=== PATIENT | male | born 1965 | race Two or more races ===

== ENCOUNTER 2024-07-20 14:31 | Inpatient (IN) | payer OTHER, MEDICAID ==
[~2024-07-20] VITALS: Ht 167.6 cm; Wt 112.1 kg
[~2024-07-20 14:31] MED LIST: ATOR20TA PO; FURO20TA3 PO; GLIP10TA9 PO; NAP500T PO; POTA8TAB38 PO; SEMA2INJ3 SC; TERB250T86 PO
--- NOTE | 2024-07-20 14:52 | ECG ---
[facility] Test Date: 2024-07-20 Test Time: 14:50:53 Pat Name: DANN GAMEZ Department: ER Room: 0212T Gender: M Still Tender: GIN : 1965 Requested By: KAMINI RENTERIA Order Number: [id number] Reading MD: Uday Vargas Measurements Intervals Campbell Rate: 99 P: 73 ND: 199 QRS: -53 QRSD: 130 T: 114 QT: 368 QTc: 473 Interpretive Statements Sinus rhythm Left bundle branch block Electronically Signed On 07-25-2024 16:08:29 PST by Uday Vargas Please click the below link to view image of tracing.
--- NOTE | 2024-07-20 14:52 | ED.PDOC ---
SOB-HPI HPI Comments A 59 year old female presents to the ED with a chief complaint of shortness of breath onset 3 days. Patient states he noticed shortness of breath is worse at night when he is laying down or when he tries to walk as well as fatigue and cough. He has a past medical history of DM and denies fever, chills, chest pain, nausea, vomiting, diarrhea, constipation. No other symptoms or modifying factors present at this time. Time Seen by MD: 14:43 Reviewed notes: Medications, Allergies Information Source: Patient, Spouse Mode of Arrival: Ambulatory Severity: Moderate Timing: Days Duration: Since onset History of: None Prehospital treatment: None Modifying Factors: Laying flat Associated Signs and Symptoms: Cough Past Medical History PAST MEDICAL HISTORY: DM Surgical History: Denies all surgeries Family History Family History: Unknown Social History Smoker: Non-Smoker Alcohol: Denies ETOH Use Drugs: Denies Drug Use Lives In: Home Constitutional: reports: fatigue; denies: chills, diaphoresis, fever, malaise, sweats, weakness, others EENTM: denies: blurred vision, double vision, ear bleeding, ear discharge, ear drainage, ear pain, ear ringing, eye pain, eye redness, hearing loss, mouth pain, mouth swelling, nasal discharge, nose bleeding, nose congestion, nose pain, photophobia, tearing, throat pain, throat swelling, voice changes, others Respiratory: reports: cough, shortness of breath; denies: hemoptysis, orthopnea, SOB at rest, SOB with excertion, stridor, wheezing, others Cardiovascular: denies: chest pain, dizzy spells, diaphoresis, Dyspnea on exertion, edema, irregular heart beat, left arm pain, lightheadedness, palpitations, PND, syncope, others Gastrointestinal: denies: abdomen distended, abdominal pain, blood streaked bowels, constipated, diarrhea, dysphagia, difficulty swallowing, hematemesis, melena, nausea, poor appetite, poor fluid intake, rectal bleeding, rectal pain, vomiting, others Genitourinary: denies: burning, dysuria, flank pain, frequency, hematuria, incontinence, penile discharge, penile sore, pain, testicle pain, testicle swelling, urgency, others Neurological: denies: dizziness, fainting, headache, left sided numbness, left sided weakness, numbness, paresthesia, pre-existing deficit, right sided numbness, right sided weakness, seizure, speech problems, tingling, tremors, weakness, others Musculoskeletal: denies: back pain, gout, joint pain, joint swelling, muscle pain, muscle stiffness, neck pain, others Integumetry: denies: bruises, change in color, change in hair/nails, dryness, laceration, lesions, lumps, rash, wounds, others Allergic/Immunocompromised: denies: Difficulty Healing, Frequent Infections, Hives, Itching, others Hematologic/Lymphatic: denies: anemia, blood clots, easy bleeding, easy bruising, swollen glands, others Endocrine: denies: excessive hunger, excessive sweating, excessive thirst, excessive urination, flushing, intolerance to cold, intolerance to heat, unexplained weight gain, unexplained weight loss, others Psychiatric: denies: anxiety, bipolar disorder, depression, hopeless, panic disorder, schizophrenia, sleepless, suicidal, others All Other Systems: Reviewed and Negative Physical Exam General Appearance: No Apparent Distress, Normal HEENT: Normal ENT Inspection, Pharynx Normal, TMs Normal Neck: Full Range of Motion, Non-Tender, Normal, Normal Inspection Respiratory: Chest Non-Tender, Lungs Clear, No Accessory Muscle Use, No Respiratory Distress, Normal Breath Sounds Cardiovascular: No Edema, No JVD, No Murmur, No Gallop, Normal Peripheral Pulses, Regular Rate/Rhythm Breast Exam: Deferred Gastrointestinal: No Organomegaly, Non Tender, No Pulsatile Mass, Normal Bowel Sounds, Soft Genitalia: Deferred Pelvic: Deferred Rectal: Deferred Extremities: No calf tenderness, Normal capillary refill, Normal inspection, Normal range of motion, Non-tender, No pedal edema Musculoskeletal : Apperance: Normal Neurologic: Alert, 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 Was a procedure done?: No Differential Dx Differential Diagnosis: Cardiogenic Shock, CHF, COPD, Myocardial infarction, Pneumonia, Pulmonary Embolism, URI X-Ray, Labs, Meds, VS Vital Signs Date Time Temp Pulse Resp B/P (MAP) Pulse Ox O2 Delivery O2 Flow Rate FiO2 07/20/24 16:13 98 18 95 Room Air* 0 21 07/20/24 16:12 98.1 98 18 112/73 (86) 95 98.1 07/20/24 14:50 99 07/20/24 14:49 98.2 99 16 113/76 (88) 93 Lab Test 07/20/24 16:24 07/20/24 15:18 Range/Units Troponin I High Sensitivity Pending 2962 *H </=54 ng/L White Blood Count 7.6 4.4-10.8 10^3/uL Red Blood Count 4.61 4.5-5.90 10^6/uL Hemoglobin 15.0 13.5-17.5 g/dL Hematocrit 45.0 41.0-53.0 % Mean Corpuscular Volume 97.7 80.0-100.0 fL Mean Corpuscular Hemoglobin 32.4 H 28.0-32.0 pg Mean Corpuscular Hemoglobin Concent 33.2 32.0-36.0 g/dL Red Cell Distribution Width 15.1 H 11.8-14.3 % Platelet Count 179 140-450 10^3/uL Mean Platelet Volume 8.8 6.9-10.8 fL Neutrophils (%) (Auto) 73.3 37.0-80.0 % Lymphocytes (%) (Auto) 15.6 10.0-50.0 % Monocytes (%) (Auto) 7.6 0.0-12.0 % Eosinophils (%) (Auto) 3.0 0.0-7.0 % Basophils (%) (Auto) 0.5 0.0-2.0 % Neutrophils # (Auto) 5.5 1.6-8.6 10 ^3/uL Lymphocytes # (Auto) 1.2 0.4-5.4 10 ^3/uL Monocytes # (Auto) 0.6 0-1.3 10 ^3/uL Eosinophils # (Auto) 0.2 0-0.8 10 ^3/uL Basophils # (Auto) 0 0-0.2 10 ^3/uL Nucleated Red Blood Cells 0.0 % Sodium Level 139 136-145 mmol/L Potassium Level 3.7 3.5-5.1 mmol/L Chloride Level 104 98-107 mmol/L Carbon Dioxide Level 26 20-31 mmol/L Anion Gap 9 5-15 Blood Urea Nitrogen 18 9-23 mg/dL Creatinine 1.19 0.700-1.30 mg/dL Glomerular Filtration Rate Calc 70 >90 mL/min BUN/Creatinine Ratio 15.1 10.0-20.0 Serum Glucose 231 H 74-106 mg/dL Calcium Level 9.8 8.7-10.4 mg/dL B-Type Natriuretic Peptide 502.78 0-100 pg/mL [facility] [address] [place] [id number] Ph: [phone] DIAGNOSTIC IMAGING Diagnostic Imaging Report : [id number] Signed PATIENT: DANN BLANDACCT: [id number] UNIT: [id number] : 1965 LOC: ER ROOM / BED: / AGE / SEX: 59 / M ADM STATUS: REG ER SERVICE 46 ORDERING PHYSICIAN: KAMINI RO MD PROCEDURE(s): CXR2 - CHEST TWO VIEWS ROUTINE REASON: sob ORDER NUMBER(s): [id number], ACCESSION NUMBER(s): [id number] EXAM: XY CHEST TWO VIEWS ROUTINE CLINICAL HISTORY: sob COMPARISON: None TECHNIQUE: Frontal and lateral view of the chest was obtained FINDINGS: Lines and Tubes: None Lungs: There is opacity in the left lung base which may represent atelectasis versus airspace disease. Pleura: No effusion. No pneumothorax. Cardiomediastinal contours: Mild cardiomegaly. Bones: No acute osseous abnormality. IMPRESSION: 1. Left lung base opacity may represent atelectasis versus airspace disease. HS:Y ATED BY: KEV FRANCO MD DICTATED DATE/TIME: 07/20/241515 SIGNED BY: KEV FRANCO MD SIGNED DATE/TIME: 07/20/241515 CC: Time of 1ST Reevaluation: 15:13 Reevaluation 1ST: Unchanged Patient Education/Counseling: Diagnosis, Treatment, Prognosis Family Education/Counseling: Diagnosis, Treatment, Prognosis Additional Information HI DATA VOL/COMPLEXITY:>2 External Notes- Ordered Test- XY, LAB, EKG, Reviewed Results: CBC, TROP, TROP, TROP, BNP, COVID, Influenza A/B Independent Hx- spouse Interpreted Results- XY/EKG Discuss Tx/Results- medical personnel, spouse, patient Departure 1 Departure Time of Disposition: 16:54 (Patient presented with acute shortness of breath concerning for aCOPD Exacerbation, Pneumonia, ACS, CHF, Pneumothorax. Less likely PE, Dissection. Data: 1. I ordered and reviewed the result of at least 3 labs including a CBC, BMP, and Troponin. 2. I independently interpreted the following tests: Chest X-ray shows benign chest .Risk:This patient has a high risk of morbidity due to further diagnostic testing or treatment and may suffer from respiratory or cardiac etiology . Workup reveals a NSTEMI with new LBBB and patient should be admitted for further workup. and possible expert consultation.) Impression: Primary Impression: NSTEMI (non-ST elevated myocardial infarction) Additional Impression: Dyspnea Qualified Codes: R06.02 - Shortness of breath Disposition: ADMITTED INPATIENT Admit to: Tele Condition: Guarded Critical Care Note Critical Care Time?: Yes Critical care comment: Worsening shortness of breath Authorized and Performed by: Kamini Ro MD Total critical care time: Approximately 38 minutes Due to a high probability of clinically significant, life threatening deterioration, the patient required my highest level of preparedness to intervene emergently and I personally spent this critical care time directly and personally managing the patient. This critical care time included obtaining a history; examining the patient; pulse oximetry; ordering and review of studies; arranging urgent treatment with development of a management plan; evaluation of patient's response to treatment; frequent reassessment; and, discussions with other providers. This critical care time was performed to assess and manage the high probability of imminent, life-threatening deterioration that could result in multi-organ failure. It was exclusive of separately billable procedures and treating other patients and teaching time. Please see my other sections and the rest of the note for further information on patient assessment and treatment. Stability Stability form required: No Heart Score Heart Score: Heart Score Response (Comments) Value History Slightly Suspicious 0 EKG Repolarization Disturb 1 Age 45-64 1 Risk Factors 1 or 2 risk factors 1 Troponin >3 x's Normal limit 2 Total 5 I personally scribed for KAMINI RO MD ([email or web address]) on 07/20/24 at 14:52. Electronically submitted by Sun Parry ([email or web address]). I personally scribed for KAMINI RO MD ([email or web address]) on 07/20/24 at 14:53. Electronically submitted by Sun Parry ([email or web address]). I personally scribed for KAMINI RO MD ([email or web address]) on 07/20/24 at 15:40. Electronically submitted by Sun Parry ([email or web address]). KAMINI RO MD Jul 20, 2024 14:52
--- NOTE | 2024-07-20 15:18 | DVH ---
EXAM: XY CHEST TWO VIEWS ROUTINE CLINICAL HISTORY: sob COMPARISON: None TECHNIQUE: Frontal and lateral view of the chest was obtained FINDINGS: Lines and Tubes: None Lungs: There is opacity in the left lung base which may represent atelectasis versus airspace disease . Pleura: No effusion. No pneumothorax. Cardiomediastinal contours: Mild cardiomegaly. Bones: No acute osseous abnormality. IMPRESSION: 1. Left lung base opacity may represent atelectasis versus airspace disease. HS:Y
[2024-07-20 15:46] LABS: Chloride 104 mmol/L (98-107); Potassium 3.7 mmol/L (3.5-5.1); Sodium 139 mmol/L (136-145)
[2024-07-20 15:47] LABS: Anion Gap 9 (5-15); Carbon Dioxide 26 mmol/L (20-31)
[2024-07-20 15:48] LABS: Basophils # (auto) 0 10 ^3/uL (0-0.2); Basophils % (auto) 0.5 % (0.0-2.0); Calcium 9.8 mg/dL (8.7-10.4); Eosinophils # (auto) 0.2 10 ^3/uL (0-0.8); Lymphocytes # (auto) 1.2 10 ^3/uL (0.4-5.4); Lymphocytes % (auto) 15.6 % (10.0-50.0); Mean Corpuscular Hemoglobin 32.4 pg (28.0-32.0); Mean Corpuscular Hgb Conc. 33.2 g/dL (32.0-36.0); Mean Corpuscular Volume 97.7 fL (80.0-100.0); Monocytes # (auto) 0.6 10 ^3/uL (0-1.3); Monocytes % (auto) 7.6 % (0.0-12.0); Neutrophils # (auto) 5.5 10 ^3/uL (1.6-8.6); Neutrophils % (auto) 73.3 % (37.0-80.0); Platelet Count (auto) 179 10^3/uL (140-450); Red Blood Cells 4.61 10^6/uL (4.5-5.90); Red Cell Distribution Width 15.1 % (11.8-14.3); White Blood Cell 7.6 10^3/uL (4.4-10.8)
[2024-07-20 15:52] LABS: BUN/Creatinine Ratio 15.1 (10.0-20.0); Blood Urea Nitrogen 18 mg/dL (9-23)
[2024-07-20 15:54] LABS: Glucose 231 mg/dL (74-106)
[2024-07-20 16:13] VITALS: PULSE 98; RESP 18; O2SAT 95
[2024-07-20] MEDS: ASPirin 81 mg TAB PO ONE (17:06)
[2024-07-20 17:31] LABS: INR 1.17 (0.9-1.15); Partial Thromboplastin Time 28.2 SEC (24.5-34.5); Prothrombin Time 12.3 sec (9.3-11.8)
[2024-07-20] MEDS: HEPARIN DRIP/D5W 100UNITS/ML 250 ML IV SCH (17:58)
[2024-07-20] MEDS: HEPARIN SODIUM (PORCINE) 5000 UNITS/ML 1ML VIAL IV ONE (17:59)
[2024-07-20 18:37] LABS: Basophils # (auto) 0 10 ^3/uL (0-0.2); Basophils % (auto) 0.3 % (0.0-2.0); Eosinophils # (auto) 0.3 10 ^3/uL (0-0.8); Eosinophils % (auto) 3.2 % (0.0-7.0); Hematocrit 44.9 % (41.0-53.0); Hemoglobin 15.2 g/dL (13.5-17.5); Lymphocytes # (auto) 1.8 10 ^3/uL (0.4-5.4); Lymphocytes % (auto) 19.8 % (10.0-50.0); Mean Corpuscular Hgb Conc. 33.8 g/dL (32.0-36.0); Mean Corpuscular Volume 97.8 fL (80.0-100.0); Monocytes % (auto) 10.9 % (0.0-12.0); Neutrophils % (auto) 65.8 % (37.0-80.0); Nucleated Red Blood Cells % 0.1 %; Platelet Count (auto) 183 10^3/uL (140-450); Red Blood Cells 4.59 10^6/uL (4.5-5.90); Red Cell Distribution Width 14.9 % (11.8-14.3); White Blood Cell 9.1 10^3/uL (4.4-10.8)
[2024-07-20] MEDS ORDERED: MORPHINE SULFATE INJ 2 MG/ml SYRG IV PRN ×2 (19:15)
[2024-07-20] MEDS ORDERED: ACETAMINOPHEN 325 MG TAB PO PRN (19:15)
[2024-07-20] MEDS ORDERED: NITROGLYCERIN 0.4 MG SL TAB SL PRN (19:15)
[2024-07-20] MEDS ORDERED: HYDROcodone-ACET 5/325MG TAB PO PRN (19:15)
--- NOTE | 2024-07-20 19:21 | DVHHP2 ---
History of Present Illness History of Present Illness A 59 year old male S medical history of diabetes, GERD, hypertension presents to the ED with a chief complaint of shortness of breath onset 3 days. Patient states he noticed shortness of breath is worse at night when he is laying down or when he tries to walk as well as fatigue and cough. He has some midsternal chest pain that is associated with the cough. He denies per orally of cough, fevers/chills, nausea vomiting, diarrhea. Denies any family history of heart disease.. He denies any sweating, diaphoresis. Denies smoking, alcohol, drugs. Review of Systems Review of Systems As per HPI Allergies: Coded Allergies: NO KNOWN ALLERGIES (Unverified , 07/20/24) Medications Current Medications Medications Dose Ordered Sig/Waldo Route Start Time Stop Time Status Last Admin Dose Admin Heparin Sodium/ Dextrose 250 ml @ 10 mls/hr Q24H IV 07/20/24 17:00 07/20/24 17:59 10 MLS/HR Acetaminophen/ Hydrocodone Bitart 1 tab Q4HP PRN PO 07/20/24 19:15 UNV Enoxaparin Sodium 40 mg DAILY SC 07/21/24 10:00 UNV Acetaminophen 650 mg Q6HP PRN PO 07/20/24 19:15 UNV Morphine Sulfate 2 mg Q4HPRN PRN IV 07/20/24 19:15 UNV Nitroglycerin 0.4 mg Q5MINP PRN SL 07/20/24 19:15 UNV Morphine Sulfate 2 mg Q30M PRN IV 07/20/24 19:15 UNV Exam Vital Signs Vital Signs Date Time Temp Pulse Resp B/P (MAP) Pulse Ox O2 Delivery O2 Flow Rate FiO2 07/20/24 18:51 98.1 101 18 145/80 (101) 97 98.1 07/20/24 16:13 Room Air* 0 21 Exam GEN: Healthy appearing, well-developed, mild distress HEENT: NC/AT; MMM. CV: RRR, no m/r/g. LUNGS: Rales up to upper lobes bilaterally ABD: Soft, NT/ND, NBS, no masses or organomegaly. EXT: skin Warm, well perfused. no rashes. Pitting edema +1 at upper shins bilaterally NEURO: Ambulating with no limitations. No focal deficits. Labs/Xrays Labs Test 07/20/24 18:10 07/20/24 15:18 Range/Units White Blood Count 9.1 4.4-10.8 10^3/uL Red Blood Count 4.59 4.5-5.90 10^6/uL Hemoglobin 15.2 13.5-17.5 g/dL Hematocrit 44.9 41.0-53.0 % Mean Corpuscular Volume 97.8 80.0-100.0 fL Mean Corpuscular Hemoglobin 33.0 H 28.0-32.0 pg Mean Corpuscular Hemoglobin Concent 33.8 32.0-36.0 g/dL Red Cell Distribution Width 14.9 H 11.8-14.3 % Platelet Count 183 140-450 10^3/uL Mean Platelet Volume 8.4 6.9-10.8 fL Neutrophils (%) (Auto) 65.8 37.0-80.0 % Lymphocytes (%) (Auto) 19.8 10.0-50.0 % Monocytes (%) (Auto) 10.9 0.0-12.0 % Eosinophils (%) (Auto) 3.2 0.0-7.0 % Basophils (%) (Auto) 0.3 0.0-2.0 % Neutrophils # (Auto) 6.0 1.6-8.6 10 ^3/uL Lymphocytes # (Auto) 1.8 0.4-5.4 10 ^3/uL Monocytes # (Auto) 1.0 0-1.3 10 ^3/uL Eosinophils # (Auto) 0.3 0-0.8 10 ^3/uL Basophils # (Auto) 0 0-0.2 10 ^3/uL Nucleated Red Blood Cells 0.1 % Troponin I High Sensitivity 3337 *H </=54 ng/L Prothrombin Time 12.3 H 9.3-11.8 sec Prothrombin Time INR 1.17 H 0.9-1.15 Activated Partial Thromboplast Time 28.2 24.5-34.5 SEC Sodium Level 139 136-145 mmol/L Potassium Level 3.7 3.5-5.1 mmol/L Chloride Level 104 98-107 mmol/L Carbon Dioxide Level 26 20-31 mmol/L Anion Gap 9 5-15 Blood Urea Nitrogen 18 9-23 mg/dL Creatinine 1.19 0.700-1.30 mg/dL Glomerular Filtration Rate Calc 70 >90 mL/min BUN/Creatinine Ratio 15.1 10.0-20.0 Serum Glucose 231 H 74-106 mg/dL Calcium Level 9.8 8.7-10.4 mg/dL B-Type Natriuretic Peptide 502.78 0-100 pg/mL Assessment/Plan Assessment/Plan #Acute coronary syndrome #Chest pain #NSTEMI #New left bundle branch block -patient is high risk (elderly male, the lifestyle, history of diabetes and hypertension,) -atypical presentation, shortness of breath being primary complaint -troponins severely elevated up to 1999 -EKG be concerning changes for possible new left bundle branch block. STEMI not found -started on ACS protocol with aspirin load and heparin drip -cardiology consulted, NPO midnight, likely LHC in a.m. -maintain telemetry, chest pain protocol -nitro SL for chest pain - activate laboratory specialist if urgent signs develop (low BP, arrythmia, STEMI on ekg, uncontrollable chest pain) - trend troponins #Shortness of breath #Pitting edema #Rales #CHF, new onset -patient presenting with dyspnea on exertion shortness of breath orthopnea -Exam with rales up to upper lobes and pitting edema -Patient is meeting [place] criteria. Pending echo -we will trial 1 time Lasix 40 IV push Consult cardiology #HTN- holding lisinopril as patient is likely to get LHC #Diabetes holding p.o. home meds (glipizide, metformin, Jardiance)-we will do a.c. HS Accu-Cheks with mild SSI Diet NPO midnight DVT prophylaxis patient on heparin drip per ACS protocol GI prophylaxis Protonix IV Med tele Plan discussed with: Patient, Spouse My Orders Orders - ALETHA CORCORAN MD Procedure Category Date Status Time Admit ADMIT 07/20/24 Transmitted 19:03 Code Status CODE 07/20/24 Transmitted 19:03 Hydrocodone-Acet PHA 07/20/24 Logged 5/325mg Tab ([place] 19:15 Enoxaparin Sodium PHA 07/21/24 Logged (Lovenox) 10:00 Complete Blood Count LAB 07/21/24 Verified 04:00 Comprehensive LAB 07/21/24 Verified Metabolic Panel 04:00 Acetaminophen Tablet PHA 07/20/24 Logged (Tylenol Tablet) 19:15 Bedrest With Bathroom [place] 11/29/24 In Process Privileg 19:03 Morphine Sulfate [facility] 07/20/24 Logged Injection 19:15 Nitroglycerin [facility] 07/20/24 Logged Sublingual (Ntrostat 19:15 Morphine Sulfate [facility] 07/20/24 Logged Injection 19:15 Notify Of Changes [facility] 07/20/24 In Process From Base 19:03 Cryptologist For [facility] 07/20/24 In Process 24 Hours 19:03 Emergency Dysrhythmia [facility] 07/20/24 In Process Protocol 19:03 Rhythm Strips Once [facility] 07/20/24 In Process Every Shift 19:03 Oxygen By Nasal RT 07/20/24 Transmitted Cannula 19:03 Npo After Midnight DIET 07/21/24 Transmitted Breakfast Cardiac DIET 07/21/24 Transmitted Diet-2gna,Lofat,Lochol Breakfast Date of Service: Jul 20, 2024 Billing Provider: ALETHA CORCORAN MD Common Visit Codes: [id number] INP/OBS CARE (HIGH) ALETHA CORCORAN MD Jul 20, 2024 19:20
[2024-07-20] MEDS ORDERED: hydrALAZINE HCL 20 MG/ML VL IV PRN (19:30)
[2024-07-20] MEDS ORDERED: DEXTROSE (50%) 50ML SYRG IV PRN (19:30)
[2024-07-20 20:01] LABS: COVID19 ANTIGEN SOFIA FIA NEGATIVE (NEGATIVE); Rapid Influenza A Negative (Negative); Rapid Influenza B Negative (Negative)
[2024-07-20] MEDS: FUROSEMIDE 40 MG/4 ML VIAL IV ONE (21:54)
[2024-07-20] MEDS: ACCU-CHEK COMFORT CURVE STRIP VI SCH (22:01)
[2024-07-20] MEDS: InsuLIN REG 1unit/0.01ml Soln (100units/ml) SC SCH (22:05)
[2024-07-20] MEDS: FAMOTIDINE 20 MG TAB PO ONE (22:36)
[2024-07-20 23:16] LABS: INR 1.22 (0.9-1.15); Prothrombin Time 12.7 sec (9.3-11.8)
[2024-07-21] VITALS (9 sets, daily range): BP systolic 95–122; BP diastolic 57–85; PULSE 84–95; RESP 18–20; TEMP 97.6–98; O2SAT 92–98
[2024-07-21] MEDS: HEPARIN SODIUM (PORCINE) 5000 UNITS/ML 1ML VIAL IV ONE ×4 (00:09→17:57)
[2024-07-21] MEDS ORDERED: LISI2.5T47 PO (02:17)
[2024-07-21] MEDS ORDERED: METF-370 PO (02:17)
[2024-07-21] MEDS ORDERED: LISI40TA16 PO (04:29)
[2024-07-21] MEDS ORDERED: METF-371 PO (04:29)
[2024-07-21 06:51] LABS: Basophils # (auto) 0 10 ^3/uL (0-0.2); Basophils % (auto) 0.4 % (0.0-2.0); Eosinophils # (auto) 0.2 10 ^3/uL (0-0.8); Eosinophils % (auto) 3.4 % (0.0-7.0); Hematocrit 40.2 % (41.0-53.0); Hemoglobin 13.5 g/dL (13.5-17.5); Lymphocytes # (auto) 1.7 10 ^3/uL (0.4-5.4); Lymphocytes % (auto) 26.3 % (10.0-50.0); Mean Corpuscular Hemoglobin 32.7 pg (28.0-32.0); Mean Corpuscular Hgb Conc. 33.7 g/dL (32.0-36.0); Mean Corpuscular Volume 97.2 fL (80.0-100.0); Monocytes # (auto) 0.7 10 ^3/uL (0-1.3); Monocytes % (auto) 10.3 % (0.0-12.0); Neutrophils # (auto) 3.8 10 ^3/uL (1.6-8.6); Neutrophils % (auto) 59.6 % (37.0-80.0); Nucleated Red Blood Cells % 0.1 %; Platelet Count (auto) 170 10^3/uL (140-450); Red Blood Cells 4.14 10^6/uL (4.5-5.90); Red Cell Distribution Width 14.6 % (11.8-14.3); White Blood Cell 6.4 10^3/uL (4.4-10.8)
[2024-07-21 07:08] LABS: Alanine Aminotransferase 21 U/L (7-40); Alkaline Phosphatase 79 U/L (46-116); Anion Gap 10 (5-15); Aspartate Aminotransferase 37 U/L (13-40); BUN/Creatinine Ratio 22.2 (10.0-20.0); Blood Urea Nitrogen 22 mg/dL (9-23); Carbon Dioxide 26 mmol/L (20-31); Chloride 105 mmol/L (98-107); INR 1.19 (0.9-1.15); Partial Thromboplastin Time 27.9 SEC (24.5-34.5); Potassium 3.9 mmol/L (3.5-5.1); Prothrombin Time 12.5 sec (9.3-11.8); Sodium 141 mmol/L (136-145)
[2024-07-21 07:09] LABS: Albumin 3.6 g/dL (3.2-4.8); Total Protein 6.1 g/dL (5.7-8.2)
[2024-07-21 07:10] LABS: Bilirubin, Total 1.3 mg/dL (0.2-1.0); Glucose 149 mg/dL (74-106)
[2024-07-21] MEDS ORDERED: HEPARIN DRIP/D5W 100UNITS/ML 250 ML IV SCH (08:15)
--- NOTE | 2024-07-21 09:09 | DVHINCON2 ---
Date Seen: Jul 21, 2024 Referring Physician MD Yari Reason for Consultation NSTEMI, new onset CHF History of Present Illness This is a 59-year-old Marshallese-speaking mostly male who presented to emergency room with a chief complaint of shortness of breath for three days. Patient complains of progressive shortness of breath associated with PND, MCNAMARA, orthopnea, lower extremity edema, and exertional chest pain/fatigue. Denies palpitations, diaphoresis, dizziness, or syncopal events. He underwent a 12 lead electrocardiogram revealing a sinus rhythm with an associated left bundle branch block. Serial troponins peaked in the 4000s ng/L. Denies any medical history for cardiovascular disease. Significant medical history includes hypertension, dyslipidemia, qmw-qhcqnmy-jzjfnbmxy diabetes mellitus, and morbid obesity. Past Medical History Past medical history reviewed. No other significant than mentioned above. Past Surgical History Denies any past surgical history. Family History: Patient reports no known family medical history. Family History Family history reviewed. Social History Denies the use of illicit drugs, alcohol, or tobacco use. Allergies: Coded Allergies: NO KNOWN ALLERGIES (Unverified , 07/20/24) Home Meds Reported Medications Lisinopril (Lisinopril) 40 Mg Tab, 1 TAB PO BID 07/21/24 Metformin Hydrochloride (Metformin Hcl) 850 Mg Tab, 1 TAB PO BID 07/21/24 Lisinopril (Lisinopril) 2.5 Mg Tab, 2.5 MG PO DAILY for 30 Days, MG 07/21/24 Glipizide (Glipizide) 10 Mg Tab, 10 MG PO for 30 Days, MG 07/21/24 Metformin Hydrochloride (Metformin Hcl) 500 Mg Tab, 500 MG PO DAILY for 30 Days, MG 07/21/24 Home Meds Home medications reviewed. Current Medications Current Medications Medications (Trade) Dose Ordered Sig/Waldo Route PRN Reason Start Time Stop Time Status Last Admin Heparin Sodium/ Dextrose 250 ml @ 10 mls/hr Q24H IV 07/20/24 17:00 07/21/24 08:11 DC 07/20/24 17:59 Acetaminophen/ Hydrocodone Bitart ([place] 5/325MG Tab) 1 tab Q4HP PRN PO MODERATE PAIN (4-6 PAIN SCALE) 07/20/24 19:15 Enoxaparin Sodium (Lovenox) 40 mg DAILY SC 07/21/24 10:00 07/20/24 21:53 DC Acetaminophen (Tylenol Tablet) 650 mg Q6HP PRN PO PAIN SCALE 1-3 OR TEMP>100.4 07/20/24 19:15 Morphine Sulfate 2 mg Q4HPRN PRN IV SEVERE PAIN (7-10 PAIN SCALE) 07/20/24 19:15 Nitroglycerin (Ntrostat Sublingual) 0.4 mg Q5MINP PRN SL FOR CHEST PAIN 07/20/24 19:15 Morphine Sulfate 2 mg Q30M PRN IV FOR CHEST PAIN 07/20/24 19:15 Diagnostic Test (Pha) (Accu-Chek Comfort Curve T) 1 strip ACHS 07/20/24 22:00 07/21/24 06:32 Insulin Human Regular (InsuLIN R) ACHS SC 07/20/24 22:00 07/21/24 06:31 Dextrose 50 ml UD PRN IV Blood Sugar LESS THAN 60 07/20/24 19:30 Hydralazine HCl (Apresoline Injection) 10 mg Q6HP PRN IV SBP>170 07/20/24 19:30 Heparin Sodium/ Dextrose 250 ml @ 13 mls/hr [id number] IV 07/21/24 08:15 07/21/24 08:56 DC Heparin Sodium/ Dextrose 250 ml @ 16 mls/hr [id number] IV 07/21/24 09:00 Review of Systems Constitutional: No symptom reported Ears, Nose, & Throat: No symptom reported Eyes: No symptom reported Neurological: No symptoms reported Pulmonary/Respiratory: SOB Cardiovascular: Exertional angina Gastrointestinal: No symptom reported Genitourinary: No symptom reported Musculoskeletal: No symptom reported Skin: No symptom reported Psychiatric: No symptom reported Endocrine: No symptom reported Hemotologic/Lymphatic: No symptom reported Vital Signs Vital Signs Date Time Temp Pulse Resp B/P (MAP) Pulse Ox O2 Delivery O2 Flow Rate FiO2 07/21/24 05:00 97.7 90 18 95/57 (70) 92 97.7 07/21/24 02:02 Nasal Cannula* 2 28 Physical Exam General Appearance: Cooperative. Morbidly obese. Mild respiratory distress Head Exam: Normal inspection Neck Exam: Normal inspection. Non-tender. Normal alignment Pulmonary/Respiratory: Chest non-tender. Crackles to bilateral breath sounds Cardiovascular/Chest: Regular rate and rhythm. S1, S2. Sinus rhythm with a associated LBBB. No murmurs. No JVD. Peripheral Pulses: 2+ Radial (R). 2+ Radial (L). 2+ Pedal (R). 2+ Pedal (L) Abdominal Exam: Normal bowel sounds. Soft. Nontender. No hepatospenomegaly. No masses Ankle Exam: Positive ankle edema, 1+ Lower extremities: Positive lower extremity pitting edema, 2+ Neuro/Mental Status: A&O x4. Coherent Thoughts/Psych: Normal thought pattern. Appropriate mood and affect. Good judgement and insight Appearance: Mild acute respiratory distress Skin Exam: Normal inspection. Normal color. Warm. Dry Labs/Diagnostic Data Labs Test 07/21/24 06:32 07/20/24 21:58 07/20/24 19:23 07/20/24 15:18 Range/Units White Blood Count 6.4 # 4.4-10.8 10^3/uL Red Blood Count 4.14 L 4.5-5.90 10^6/uL Hemoglobin 13.5 13.5-17.5 g/dL Hematocrit 40.2 #L 41.0-53.0 % Mean Corpuscular Volume 97.2 80.0-100.0 fL Mean Corpuscular Hemoglobin 32.7 H 28.0-32.0 pg Mean Corpuscular Hemoglobin Concent 33.7 32.0-36.0 g/dL Red Cell Distribution Width 14.6 H 11.8-14.3 % Platelet Count 170 140-450 10^3/uL Mean Platelet Volume 8.4 6.9-10.8 fL Neutrophils (%) (Auto) 59.6 37.0-80.0 % Lymphocytes (%) (Auto) 26.3 10.0-50.0 % Monocytes (%) (Auto) 10.3 0.0-12.0 % Eosinophils (%) (Auto) 3.4 0.0-7.0 % Basophils (%) (Auto) 0.4 0.0-2.0 % Neutrophils # (Auto) 3.8 1.6-8.6 10 ^3/uL Lymphocytes # (Auto) 1.7 0.4-5.4 10 ^3/uL Monocytes # (Auto) 0.7 0-1.3 10 ^3/uL Eosinophils # (Auto) 0.2 0-0.8 10 ^3/uL Basophils # (Auto) 0 0-0.2 10 ^3/uL Nucleated Red Blood Cells 0.1 % Prothrombin Time 12.5 H 9.3-11.8 sec Prothrombin Time INR 1.19 H 0.9-1.15 Activated Partial Thromboplast Time 27.9 24.5-34.5 SEC Sodium Level 141 136-145 mmol/L Potassium Level 3.9 3.5-5.1 mmol/L Chloride Level 105 98-107 mmol/L Carbon Dioxide Level 26 20-31 mmol/L Anion Gap 10 5-15 Blood Urea Nitrogen 22 9-23 mg/dL Creatinine 0.99 0.700-1.30 mg/dL Glomerular Filtration Rate Calc 87 >90 mL/min BUN/Creatinine Ratio 22.2 H 10.0-20.0 Serum Glucose 149 H 74-106 mg/dL Calcium Level 9.0 8.7-10.4 mg/dL Total Bilirubin 1.3 H 0.2-1.0 mg/dL Aspartate Amino Transferase (AST) 37 13-40 U/L Alanine Aminotransferase (ALT) 21 7-40 U/L Alkaline Phosphatase 79 46-116 U/L Troponin I High Sensitivity 3803 *H </=54 ng/L Total Protein 6.1 5.7-8.2 g/dL Albumin 3.6 3.2-4.8 g/dL POC Glucose 222 H 70-106 mg/dl Influenza Type A Antigen Negative Negative Influenza Type B Antigen Negative Negative SARS-CoV-2 Antigen (Rapid) Negative NEGATIVE B-Type Natriuretic Peptide 502.78 0-100 pg/mL Assessment Non ST-elevation myocardial infarction Stable angina with associated LBBB rule out coronary artery disease Acute congestive heart failure, unspecified, newly diagnosed Hypertension Dyslipidemia Zoe-kdrcmyw-wadzsepnn diabetes mellitus, HgbA1C 6.9% Morbid obesity Plan/Recommendation (Dr. Viramontes) The patient with stable angina associated with a LBBB, elevated troponin levels, and new onset CHF will undergo a cardiac catheterization and coronary angiogram with Dr. Viramontes on 07/23/2024. Risks and benefits of the procedure were discussed with the patient who agrees to proceed with intervention. All questions answered. Further cardiac evaluation will be instituted with a transthoracic echocardiogram to rule out structural heart disease. In the meantime, continue heparin drip per pharmacy protocol and load on Plavix therapy. Initiate single-antiplatelet therapy and lipid lowering agent. Continue preload and afterload reduction as tolerated, strict I&Os. Monitor troponin levels and ECG changes and notify as necessary. Thank you for allowing us to participate in this patient's care. Please call if you have any questions or concerns. Critical care time: 40 min. This medical document was created using an [employer] medical record system with voice recognition software and computerized dictation system. Although this document has been carefully reviewed, there might still be some phonetic and typographical errors. Occasional wrong-word or ``sound-alike substitutions may have occurred due to the inherent limitations of voice recognition software. These areas are purely typographical due to imperfections of the software programs and do not reflect any compromise in the patient's medical care. Please read the chart carefully and recognize, using context, where these substitutions have occurred. Plan discussed with: Patient, Other Date of Service: Jul 21, 2024 Billing Provider: JOSHUA RYDER Cardiology Common Codes: [id number] CARE 30-74 MIN JOSHUA RYDER Jul 21, 2024 09:09
[2024-07-21] MEDS: HEPARIN DRIP/D5W 100UNITS/ML 250 ML IV SCH ×2 (09:15→17:55)
[2024-07-21 09:42] LABS: Magnesium 1.7 mg/dL (1.6-2.6)
[2024-07-21] MEDS ORDERED: ENOXAPARIN SOD 40 MG/0.4 ML SYRINGE SC SCH (10:00)
[2024-07-21] MEDS: LISINOPRIL 5 MG TAB PO SCH (10:00)
[2024-07-21] MEDS: CLOPIDOGREL BISULFATE 75 MG TAB PO ONE (11:25)
[2024-07-21] MEDS: METOPROLOL TARTRATE 25 MG TAB PO SCH (11:25)
[2024-07-21] MEDS: ASPirin 81 mg TAB PO SCH (11:25)
[2024-07-21] MEDS: FUROSEMIDE 40 MG/4 ML VIAL IV ONE (11:26)
--- NOTE | 2024-07-21 11:41 | DVHSR ---
APPROVED REPORT EXAM: Two-dimensional and M-mode echocardiogram with Doppler and color Doppler. Blood Pressure: 95/57 mmHg INDICATION CHF syndrome NSTEMI RISK FACTORS Obesity: Height: 5'6", Weight: 258 DIMENSIONS LVDd5.5 (3.8-5.7cm)LA (2D)4.5 (1.9-4.0cm)Aortic Root3.3 (2.0-3.7cm) LVDs5.0 (2.5-4.0cm)LA (MM) (1.9-4.0cm)Aortic Cusp Exc1.8 (1.5-2.0cm) EF (%) 15.0 (55-70%)Rt. Atrium4.6 (1.9-4.0cm)Asc. Aorta cm IVSd1.0 (0.7-1.1cm)RV (D) (1.8-2.4cm) PWd1.0 (0.7-1.1cm) Mitral Valve MitralMitral Stenosis E wave1.09m/sMV Mean GR.mmHg A wave0.64m/sMV Peak GR.mmHg E/A ratio1.72D MVAcm2 DECEL [id number] 1/2 Timems Aortic Valve Aortic ValveAortic Stenosis V10.85m/Ced Mean GR.3mmHg V21.09m/Ced Peak GR.5mmHg LVOT Diameter2.3 (1.8-2.4cm)Doppler AVA3.24cm2 Pulmonic Valve V21.01m/s Tricuspid Valve TR Velocity3.77m/s [id number] Other Information Technically limited study due to body habitus. 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
[2024-07-21] MEDS: MAGNESIUM SULFATE 1GM/100ML 100 ML IV ONE (15:22)
[2024-07-21 15:25] LABS: INR 1.19 (0.9-1.15); Partial Thromboplastin Time 27.2 SEC (24.5-34.5); Prothrombin Time 12.5 sec (9.3-11.8)
--- NOTE | 2024-07-21 15:55 | DVHPN2 ---
Progress Note - Dictate Date Seen: Jul 21, 2024 Medical Necessity Reason Pt with a Central, PICC or Fol: No Subjective Patient comfortable with no chest pain. vital signs Vital Sign Date Time Temp Pulse Resp B/P (MAP) Pulse Ox O2 Delivery O2 Flow Rate FiO2 07/21/24 13:00 97.6 90 20 122/85 (97) 96 97.6 07/21/24 08:00 Nasal Cannula* 2 28 Total Intake and Output 07/20/24 07/20/24 07/21/24 15:00 23:00 07:00 Intake Total 40 ml 23 ml Output Total 300 ml 300 ml Balance -260 ml -277 ml medications Current Medications Medications Dose Ordered Sig/Waldo Route Start Time Stop Time Status Last Admin Dose Admin Acetaminophen/ Hydrocodone Bitart 1 tab Q4HP PRN PO 07/20/24 19:15 Acetaminophen 650 mg Q6HP PRN PO 07/20/24 19:15 Morphine Sulfate 2 mg Q4HPRN PRN IV 07/20/24 19:15 Nitroglycerin 0.4 mg Q5MINP PRN SL 07/20/24 19:15 Morphine Sulfate 2 mg Q30M PRN IV 07/20/24 19:15 Diagnostic Test (Pha) 1 strip ACHS 07/20/24 22:00 07/21/24 11:30 1 STRIP Insulin Human Regular ACHS SC 07/20/24 22:00 07/21/24 11:30 2 UNITS Dextrose 50 ml UD PRN IV 07/20/24 19:30 Hydralazine HCl 10 mg Q6HP PRN IV 07/20/24 19:30 Heparin Sodium/ Dextrose 250 ml @ 16 mls/hr [id number] IV 07/21/24 09:00 07/21/24 09:15 16 MLS/HR Aspirin 81 mg DAILY PO 07/21/24 10:00 07/21/24 11:25 81 MG Furosemide 20 mg BIDD IV 07/21/24 18:00 Metoprolol Tartrate 12.5 mg BID PO 07/21/24 10:00 07/21/24 11:25 12.5 MG Lisinopril 5 mg DAILY PO 07/21/24 10:00 Atorvastatin Calcium 40 mg HS PO 07/21/24 22:00 Levofloxacin/ Dextrose 100 ml @ 100 mls/hr DAILY IV 07/22/24 10:00 objective General appearance: No acute distress Respiratory: Lungs clear to auscultation. No wheezing, crackles Cardiovascular: Regular rate and rhythm, no murmurs. 2+ pitting edema. Abdomen: Soft, nondistended, nontender, bowel sounds present MSK: Normal range of motion. Neuro: Alert, no neurological deficits Psych: Appropriate mood and affect. laboratory and microbiology Laboratory Tests 07/21/24 06:32 Test 07/21/24 06:32 Range/Units Serum Glucose 149 H 74-106 mg/dL Problem List 1. NSTEMI 2. End- Stage CHF, Reduced Systolic EF 25% 3. Type 2 Diabetes 4. Morbid Obesity Assessment/Plan -Cardiology, Dr. Viramontes consulted for NSTEMI. -Continue heparin drip -Plan for left heart cath on 07/23/2024 -TTE reveals end-stage CHF. -Continue diuresis with Lasix -Low-sodium diet -Insulin sliding scale with Accu-Cheks -Possible plan to transfer to higher level of care if patient requires CABG based on left heart cath findings -Full code Plan discussed with: Patient KEAGAN OCAMPO DO Jul 21, 2024 15:55
[2024-07-21] MEDS: levoFLOXacin 500MG 100 ML IV ONE (17:04)
--- NOTE | 2024-07-21 17:25 | DVHPN2 ---
Subjective Patient seen earlier today. He feels better. There was confusion earlier as well the patient is a heterogeneous patient as the hospitalist for her age declined to take over due to the confusion. Addendum: [facility]: Care Plan, H&P, Labs, Medications, Previous Orders, Radiology Changes from previous H/P or p: No Changes Objective Vitals Vital Signs Date Time Temp Pulse Resp B/P (MAP) Pulse Ox O2 Delivery O2 Flow Rate FiO2 07/21/24 13:00 97.6 90 20 122/85 (97) 96 97.6 07/21/24 08:00 Nasal Cannula* 2 28 Intake/Output Intake and Output 07/21/24 07:00 Intake Total 63 ml Output Total 600 ml Balance -537 ml Intake Oral 0 ml IV Total 63 ml Output Urine Total 600 ml General Appearance: Alert, Oriented X3, Cooperative, No acute distress HEENT: Atraumatic Lungs: Other (Or crackles both lungs but more so on the right lung) Cardiovascular: Regular rate, Gallops (S3) Abdomen: Normal bowel sounds, Soft, No tenderness Extremities: Other (1+ edema bilateral lower extremities) Medications Current Medications Medications Dose Ordered Sig/Waldo Route Start Time Stop Time Status Last Admin Dose Admin Acetaminophen/ Hydrocodone Bitart 1 tab Q4HP PRN PO 07/20/24 19:15 Acetaminophen 650 mg Q6HP PRN PO 07/20/24 19:15 Morphine Sulfate 2 mg Q4HPRN PRN IV 07/20/24 19:15 Nitroglycerin 0.4 mg Q5MINP PRN SL 07/20/24 19:15 Morphine Sulfate 2 mg Q30M PRN IV 07/20/24 19:15 Diagnostic Test (Pha) 1 strip ACHS 07/20/24 22:00 07/21/24 17:04 1 STRIP Insulin Human Regular ACHS SC 07/20/24 22:00 07/21/24 11:30 2 UNITS Dextrose 50 ml UD PRN IV 07/20/24 19:30 Hydralazine HCl 10 mg Q6HP PRN IV 07/20/24 19:30 Heparin Sodium/ Dextrose 250 ml @ 16 mls/hr [id number] IV 07/21/24 09:00 07/21/24 09:15 16 MLS/HR Aspirin 81 mg DAILY PO 07/21/24 10:00 07/21/24 11:25 81 MG Furosemide 20 mg BIDD IV 07/21/24 18:00 Metoprolol Tartrate 12.5 mg BID PO 07/21/24 10:00 07/21/24 11:25 12.5 MG Lisinopril 5 mg DAILY PO 07/21/24 10:00 Atorvastatin Calcium 40 mg HS PO 07/21/24 22:00 Levofloxacin/ Dextrose 100 ml @ 100 mls/hr DAILY IV 07/22/24 10:00 Laboratory Results Laboratory Tests 07/21/24 06:32 Chemistry Test 07/21/24 06:32 Albumin 3.6 g/dL (3.2-4.8) Calcium Level 9.0 mg/dL (8.7-10.4) Magnesium Level 1.7 mg/dL (1.6-2.6) Total Protein 6.1 g/dL (5.7-8.2) Coagulation Test 07/20/24 22:51 07/21/24 06:32 07/21/24 14:58 Prothrombin Time 12.7 sec (9.3-11.8) H 12.5 sec (9.3-11.8) H 12.5 sec (9.3-11.8) H Prothrombin Time INR 1.22 (0.9-1.15) H 1.19 (0.9-1.15) H 1.19 (0.9-1.15) H Activated Partial Thromboplast Time 35.0 SEC (24.5-34.5) H 27.9 SEC (24.5-34.5) 27.2 SEC (24.5-34.5) Lipid panel Test 07/21/24 06:32 Cholesterol Level 132 mg/dL (< 200) HDL Cholesterol 35 mg/dL (40-59) L Triglycerides Level 95 mg/dL (< 150) LFT Test 07/21/24 06:32 Alanine Aminotransferase (ALT) 21 U/L (7-40) Alkaline Phosphatase 79 U/L (46-116) Aspartate Amino Transferase (AST) 37 U/L (13-40) Total Bilirubin 1.3 mg/dL (0.2-1.0) H HgA1c, TSH Test 07/21/24 06:32 Hemoglobin A1c 6.9 % A1C (<5.7) H Thyroid Stimulating Hormone (TSH) 1.64 uIU/mL (0.55-4.78) Assessment/Plan Assessment/Plan Non-STEMI Heart failure Left bundle-branch block Possible pneumonia Dyslipidemia Hypertension Diabetes Morbid obesity BMI 41.7 Plan: Add antibiotic. Repeat x-ray. Repeat labs. Further plan per orders Plan discussed with: Patient My Orders Orders - SALLY CHANEY MD Procedure Category Date Status Time Levofloxacin 500mg PHA 07/22/24 In Process (Levaquin 500mg/ 100m 10:00 Chest Two Views XY 07/22/24 Logged Routine 06:00 Comprehensive LAB 07/22/24 Verified Metabolic Panel 06:00 Troponin-I Hs LAB 07/22/24 Verified 04:00 Date of Service: Jul 21, 2024 Billing Provider: SALLY CHANEY MD Common Visit Codes: [id number] INP/OBS CARE(HIGH) SALLY CHANEY MD Jul 21, 2024 17:25
[2024-07-21] MEDS: FUROSEMIDE 20 MG/2 ML VIAL IV SCH (17:58)
[2024-07-21] MEDS: ATORVASTATIN 20 MG TAB PO SCH (21:34)
[2024-07-22] VITALS (8 sets, daily range): BP systolic 100–141; BP diastolic 65–84; PULSE 77–94; RESP 18–20; TEMP 97.6–98.2; O2SAT 93–97
[2024-07-22 01:03] LABS: INR 1.25 (0.9-1.15)
[2024-07-22 01:18] LABS: Partial Thromboplastin Time 78.3 SEC (24.5-34.5)
[2024-07-22] MEDS: HEPARIN DRIP/D5W 100UNITS/ML 250 ML IV SCH ×3 (02:47→14:30)
[2024-07-22 05:34] LABS: Basophils # (auto) 0 10 ^3/uL (0-0.2); Basophils % (auto) 0.4 % (0.0-2.0); Eosinophils # (auto) 0.2 10 ^3/uL (0-0.8); Eosinophils % (auto) 2.9 % (0.0-7.0); Hemoglobin 13.8 g/dL (13.5-17.5); Lymphocytes # (auto) 2.4 10 ^3/uL (0.4-5.4); Mean Corpuscular Hemoglobin 32.7 pg (28.0-32.0); Mean Corpuscular Hgb Conc. 33.7 g/dL (32.0-36.0); Mean Corpuscular Volume 97.1 fL (80.0-100.0); Monocytes # (auto) 0.6 10 ^3/uL (0-1.3); Neutrophils % (auto) 55.7 % (37.0-80.0); Nucleated Red Blood Cells % 0.1 %; Platelet Count (auto) 197 10^3/uL (140-450); Red Blood Cells 4.23 10^6/uL (4.5-5.90); Red Cell Distribution Width 14.6 % (11.8-14.3); White Blood Cell 7.3 10^3/uL (4.4-10.8)
[2024-07-22 05:54] LABS: Alanine Aminotransferase 20 U/L (7-40); Albumin 3.8 g/dL (3.2-4.8); Alkaline Phosphatase 79 U/L (46-116); Anion Gap 12 (5-15); Aspartate Aminotransferase 36 U/L (13-40); BUN/Creatinine Ratio 28.1 (10.0-20.0); Calcium 9.5 mg/dL (8.7-10.4); Carbon Dioxide 24 mmol/L (20-31); Chloride 104 mmol/L (98-107); Potassium 3.7 mmol/L (3.5-5.1); Sodium 140 mmol/L (136-145)
[2024-07-22 05:55] LABS: Total Protein 6.1 g/dL (5.7-8.2)
[2024-07-22 06:00] LABS: Bilirubin, Total 1.3 mg/dL (0.2-1.0); Blood Urea Nitrogen 25 mg/dL (9-23); Glucose 131 mg/dL (74-106)
--- NOTE | 2024-07-22 08:51 | DVHPN2 ---
Progress Note Date Seen: Jul 22, 2024 Medical Necessity Reason Pt with a Central, PICC or Fol: No Subjective Patient reports: Feels better Other Systems: no CP pt wants breakfast Objective vital signs Vital Sign Date Time Temp Pulse Resp B/P (MAP) Pulse Ox O2 Delivery O2 Flow Rate FiO2 07/22/24 05:20 109/68 07/22/24 05:00 98.2 77 20 95 98.2 07/21/24 20:00 Nasal Cannula* 2 28 Total Intake and Output 07/21/24 07/21/24 07/22/24 15:00 23:00 07:00 Intake Total 200 ml 114 ml Output Total 600 ml 350 ml Balance -400 ml -236 ml medications Current Medications Medications Dose Ordered Sig/Waldo Route Start Time Stop Time Status Last Admin Dose Admin Acetaminophen/ Hydrocodone Bitart 1 tab Q4HP PRN PO 07/20/24 19:15 Acetaminophen 650 mg Q6HP PRN PO 07/20/24 19:15 Morphine Sulfate 2 mg Q4HPRN PRN IV 07/20/24 19:15 Nitroglycerin 0.4 mg Q5MINP PRN SL 07/20/24 19:15 Morphine Sulfate 2 mg Q30M PRN IV 07/20/24 19:15 Diagnostic Test (Pha) 1 strip ACHS 07/20/24 22:00 07/22/24 06:22 1 STRIP Insulin Human Regular ACHS SC 07/20/24 22:00 07/22/24 06:22 3 UNITS Dextrose 50 ml UD PRN IV 07/20/24 19:30 Hydralazine HCl 10 mg Q6HP PRN IV 07/20/24 19:30 Aspirin 81 mg DAILY PO 07/21/24 10:00 07/21/24 11:25 81 MG Furosemide 20 mg BIDD IV 07/21/24 18:00 07/22/24 05:20 20 MG Metoprolol Tartrate 12.5 mg BID PO 07/21/24 10:00 07/21/24 21:34 12.5 MG Lisinopril 5 mg DAILY PO 07/21/24 10:00 Atorvastatin Calcium 40 mg HS PO 07/21/24 22:00 07/21/24 21:34 40 MG Levofloxacin/ Dextrose 100 ml @ 100 mls/hr DAILY IV 07/22/24 10:00 Heparin Sodium/ Dextrose 250 ml @ 17 mls/hr [id number] IV 07/22/24 02:00 07/22/24 02:47 17 MLS/HR Examination: GENERAL:Abnormal, HEENT:Abnormal, LUNGS:Abnormal, CVS:Abnormal, ABDOMEN:Abnormal laboratory and microbiology Laboratory Tests 07/22/24 05:03 Test 07/22/24 05:03 Range/Units Serum Glucose 131 H 74-106 mg/dL Problem List/Assessment/Plan Problem List/Assessment/Plan nstemi severe chf new onset htn hl DM obesity [facility] tomorrow AM, pt agrees to plan after informed consent high risk for multivessel cad cnt asa dc heparin at 2359 npo after 2400 cxr today Plan discussed with: Patient Date of Service: Jul 22, 2024 Billing Provider: ELISHA HARKINS MD Common Visit Codes: NOT BILLABLE ELISHA HARKINS MD Jul 22, 2024 08:50
[2024-07-22 09:30] LABS: INR 1.25 (0.9-1.15)
[2024-07-22 09:49] LABS: Partial Thromboplastin Time 90.1 SEC (24.5-34.5)
[2024-07-22] MEDS: levoFLOXacin 500MG 100 ML IV SCH (09:55)
--- NOTE | 2024-07-22 09:57 | DVH ---
XY CHEST TWO VIEWS ROUTINE, HISTORY: fu LLL PNA/ATX COMPARISON: XY CHEST TWO VIEWS ROUTINE on DOS: 07/20/24 XY CHEST TWO VIEWS ROUTINE on DOS: 07/20/24 TECHNICAL DATA: 1 view of the chest was obtained. FINDINGS: Lines and tubes: None Cardiomediastinal silhouette: normal Pulmonary vasculature: normal Lung expansion: normal Lung airspace: Similar left basilar airspace opacity. Lung interstitium: normal Pleura: normal Pneumothorax: no Bones: Unremarkable Other: no IMPRESSION: Similar left basilar airspace opacity compared to 07/20/24.
--- NOTE | 2024-07-22 14:18 | DVHPN2 ---
Progress Note - Dictate Date Seen: Jul 22, 2024 Medical Necessity Reason Pt with a Central, PICC or Fol: No Subjective Patient comfortable with no chest pain. vital signs Vital Sign Date Time Temp Pulse Resp B/P (MAP) Pulse Ox O2 Delivery O2 Flow Rate FiO2 07/22/24 13:00 98.0 80 20 104/83 (90) 97 98.0 07/22/24 08:00 Nasal Cannula* 2 28 Total Intake and Output 07/21/24 07/21/24 07/22/24 15:00 23:00 07:00 Intake Total 200 ml 114 ml Output Total 600 ml 350 ml Balance -400 ml -236 ml medications Current Medications Medications Dose Ordered Sig/Waldo Route Start Time Stop Time Status Last Admin Dose Admin Acetaminophen/ Hydrocodone Bitart 1 tab Q4HP PRN PO 07/20/24 19:15 Acetaminophen 650 mg Q6HP PRN PO 07/20/24 19:15 Morphine Sulfate 2 mg Q4HPRN PRN IV 07/20/24 19:15 Nitroglycerin 0.4 mg Q5MINP PRN SL 07/20/24 19:15 Morphine Sulfate 2 mg Q30M PRN IV 07/20/24 19:15 Diagnostic Test (Pha) 1 strip ACHS 07/20/24 22:00 07/22/24 11:30 1 STRIP Insulin Human Regular ACHS SC 07/20/24 22:00 07/22/24 11:30 4 UNITS Dextrose 50 ml UD PRN IV 07/20/24 19:30 Hydralazine HCl 10 mg Q6HP PRN IV 07/20/24 19:30 Aspirin 81 mg DAILY PO 07/21/24 10:00 07/22/24 09:56 81 MG Furosemide 20 mg BIDD IV 07/21/24 18:00 07/22/24 05:20 20 MG Metoprolol Tartrate 12.5 mg BID PO 07/21/24 10:00 07/22/24 09:56 12.5 MG Lisinopril 5 mg DAILY PO 07/21/24 10:00 07/22/24 09:55 5 MG Atorvastatin Calcium 40 mg HS PO 07/21/24 22:00 07/21/24 21:34 40 MG Levofloxacin/ Dextrose 100 ml @ 100 mls/hr DAILY IV 07/22/24 10:00 07/22/24 09:55 100 MLS/HR Heparin Sodium/ Dextrose 250 ml @ 14 mls/hr [id number] IV 07/22/24 10:50 07/22/24 11:02 14 MLS/HR objective General appearance: No acute distress Respiratory: Lungs clear to auscultation. No wheezing, crackles Cardiovascular: Regular rate and rhythm, no murmurs. 2+ pitting edema. Abdomen: Soft, nondistended, nontender, bowel sounds present MSK: Normal range of motion. Neuro: Alert, no neurological deficits Psych: Appropriate mood and affect. laboratory and microbiology Laboratory Tests 07/22/24 05:03 Test 07/22/24 05:03 Range/Units Serum Glucose 131 H 74-106 mg/dL Problem List 1. NSTEMI 2. End- Stage CHF, Reduced Systolic EF 25% 3. Type 2 Diabetes 4. Morbid Obesity Assessment/Plan -Cardiology, Dr. Viramontes consulted for NSTEMI. -Continue heparin drip -Plan for left heart cath on 07/23/2024 -TTE reveals end-stage CHF, EF 25%. -Continue diuresis with Lasix -Low-sodium diet -Insulin sliding scale with Accu-Cheks -Possible plan to transfer to higher level of care if patient requires CABG based on left heart cath findings -Full code Plan discussed with: Patient KEAGAN OCAMPO DO Jul 22, 2024 14:18
[2024-07-22 17:41] LABS: INR 1.26 (0.9-1.15); Partial Thromboplastin Time 55.6 SEC (24.5-34.5); Prothrombin Time 13.1 sec (9.3-11.8)
[2024-07-23] VITALS (13 sets, daily range): BP systolic 87–155; BP diastolic 52–84; PULSE 85–105; RESP 17–20; TEMP 97.6–98.1; O2SAT 92–98
[2024-07-23 04:42] LABS: Urine Bacteria None Seen /hpf (None Seen)
[2024-07-23 04:54] LABS: Urine Blood Negative /uL (Negative); Urine Clarity Clear (Clear); Urine Color Yellow (Yellow); Urine Mucus FEW (None Seen); Urine Protein, UAD TRACE (Negative); Urine Specific Gravity 1.025 (1.001-1.035); Urine Urobilinogen 2 mg/dL (Negative); Urine WBC 5 /hpf (0 - 3)
[2024-07-23 09:17] LABS: Basophils # (auto) 0 10 ^3/uL (0-0.2); Basophils % (auto) 0.5 % (0.0-2.0); Eosinophils # (auto) 0.2 10 ^3/uL (0-0.8); Eosinophils % (auto) 2.6 % (0.0-7.0); Hemoglobin 13.9 g/dL (13.5-17.5); Lymphocytes # (auto) 2.4 10 ^3/uL (0.4-5.4); Lymphocytes % (auto) 31.4 % (10.0-50.0); Mean Corpuscular Hemoglobin 32.3 pg (28.0-32.0); Mean Corpuscular Hgb Conc. 33.1 g/dL (32.0-36.0); Mean Corpuscular Volume 97.6 fL (80.0-100.0); Monocytes # (auto) 0.6 10 ^3/uL (0-1.3); Monocytes % (auto) 7.8 % (0.0-12.0); Neutrophils # (auto) 4.4 10 ^3/uL (1.6-8.6); Neutrophils % (auto) 57.7 % (37.0-80.0); Nucleated Red Blood Cells % 0.1 %; Platelet Count (auto) 226 10^3/uL (140-450); Red Cell Distribution Width 14.5 % (11.8-14.3); White Blood Cell 7.6 10^3/uL (4.4-10.8)
[2024-07-23 09:19] LABS: Alanine Aminotransferase 18 U/L (7-40); Albumin 4.1 g/dL (3.2-4.8); Alkaline Phosphatase 81 U/L (46-116); Anion Gap 9 (5-15); Aspartate Aminotransferase 38 U/L (13-40); BUN/Creatinine Ratio 24.5 (10.0-20.0); Carbon Dioxide 28 mmol/L (20-31); Chloride 104 mmol/L (98-107); Sodium 141 mmol/L (136-145)
[2024-07-23 09:20] LABS: Bilirubin, Total 1.2 mg/dL (0.2-1.0); Total Protein 7.1 g/dL (5.7-8.2)
[2024-07-23 09:21] LABS: Blood Urea Nitrogen 25 mg/dL (9-23); Glucose 158 mg/dL (74-106)
--- NOTE | 2024-07-23 11:57 | CONS ---
Pharmacy Clinical Information: From [facility] Heart Failure Fallout Report, Brown Phillips is a 59 year old male with PMH of DM, GERD, HTN, and new onset HF (LVEF 25%) His home medications for heart failure include lisinopril, empagliflozin, and furosemide. His inpatient medications include lisinopril, metoprolol tartrate, and furosemide. Patient is currently NPO prior to LHC. Consider holding ACEi and SGLT2i prior to cardiac procedure. Consider switching metoprolol tartrate to metroprolol succinate once patient is hemodynamically stable since 2021 heart failure guidelines recommend sustained- release metoprolol to reduce mortality and hospitalizations. Consider initiating MRA once patient is hemodynamically stable since patient eGFR > 30 and K < 5 [facility] Jul 23, 2024 11:57
--- NOTE | 2024-07-23 11:58 | DVHPN2 ---
Progress Note - Dictate Date Seen: Jul 23, 2024 Medical Necessity Reason Pt with a Central, PICC or Fol: No Subjective Patient comfortable with no chest pain. Discussed plan for left heart cath today. vital signs Vital Sign Date Time Temp Pulse Resp B/P (MAP) Pulse Ox O2 Delivery O2 Flow Rate FiO2 07/23/24 08:30 97.7 95 17 100/52 (68) 98 97.7 07/22/24 20:00 Nasal Cannula* 2 28 Total Intake and Output 07/22/24 07/22/24 07/23/24 15:00 23:00 07:00 Intake Total 288 ml 650 ml 268 ml Output Total 600 ml 850 ml Balance 288 ml 50 ml -582 ml medications Current Medications Medications Dose Ordered Sig/Waldo Route Start Time Stop Time Status Last Admin Dose Admin Acetaminophen/ Hydrocodone Bitart 1 tab Q4HP PRN PO 07/20/24 19:15 Acetaminophen 650 mg Q6HP PRN PO 07/20/24 19:15 Morphine Sulfate 2 mg Q4HPRN PRN IV 07/20/24 19:15 Nitroglycerin 0.4 mg Q5MINP PRN SL 07/20/24 19:15 Morphine Sulfate 2 mg Q30M PRN IV 07/20/24 19:15 Diagnostic Test (Pha) 1 strip ACHS 07/20/24 22:00 07/23/24 06:06 1 STRIP Insulin Human Regular ACHS SC 07/20/24 22:00 07/22/24 21:38 4 UNITS Dextrose 50 ml UD PRN IV 07/20/24 19:30 Hydralazine HCl 10 mg Q6HP PRN IV 07/20/24 19:30 Aspirin 81 mg DAILY PO 07/21/24 10:00 07/22/24 09:56 81 MG Furosemide 20 mg BIDD IV 07/21/24 18:00 07/23/24 05:23 20 MG Metoprolol Tartrate 12.5 mg BID PO 07/21/24 10:00 07/22/24 21:35 12.5 MG Lisinopril 5 mg DAILY PO 07/21/24 10:00 07/22/24 09:55 5 MG Atorvastatin Calcium 40 mg HS PO 07/21/24 22:00 07/22/24 21:35 40 MG Levofloxacin/ Dextrose 100 ml @ 100 mls/hr DAILY IV 07/22/24 10:00 07/22/24 09:55 100 MLS/HR objective General appearance: No acute distress Respiratory: Lungs clear to auscultation. No wheezing, crackles Cardiovascular: Regular rate and rhythm, no murmurs. 2+ pitting edema. Abdomen: Soft, nondistended, nontender, bowel sounds present MSK: Normal range of motion. Neuro: Alert, no neurological deficits Psych: Appropriate mood and affect. laboratory and microbiology Laboratory Tests 07/23/24 05:19 Test 07/23/24 05:19 Range/Units Serum Glucose 158 H 74-106 mg/dL Problem List 1. NSTEMI 2. End- Stage CHF, Reduced Systolic EF 25% 3. Type 2 Diabetes 4. Morbid Obesity Assessment/Plan -Cardiology, Dr. Viramontes consulted for NSTEMI. -Continue heparin drip -Plan for left heart cath on 07/23/2024. -TTE reveals end-stage CHF, EF 25%. -Continue diuresis with Lasix -Low-sodium diet -Insulin sliding scale with Accu-Cheks -Possible plan to transfer to higher level of care if patient requires CABG based on left heart cath findings -No new changes to plan. -Full code Plan discussed with: Patient KEAGAN OCAMPO DO Jul 23, 2024 11:58
[2024-07-23] MEDS: fentaNYL CITRATE 100 MCG/2 ML VL ONE (12:02)
[2024-07-23] MEDS: LIDOCAINE 2%HCL (LOCAL ANESTH.) INJ 20ML MDV ONE (12:02)
[2024-07-23] MEDS: HEPARIN SODIUM (PORCINE) 5000 UNITS/ML 1ML VIAL ONE (12:02)
[2024-07-23] MEDS: MIDAZOLAM HCL 2MG/2ML 2ml VIAL (1mg/ml) ONE (12:02)
[2024-07-23] MEDS: SODIUM CHL 0.9% 0 ML ONE (12:02)
[2024-07-23] MEDS: VERAPAMIL 2.5MG/ML INJ 2ML VIAL IV ONE (12:02)
[2024-07-23] MEDS: ANGIOMAX 250 MG VIAL IV ONE (12:02)
[2024-07-23] MEDS: IODIXANOL 320MG/ML 100ML BTL IV ONE (12:25)
--- NOTE | 2024-07-23 12:56 | DVHPN2 ---
Progress Note Date Seen: Jul 23, 2024 Medical Necessity Reason Pt with a Central, PICC or Fol: No Subjective Other Systems: sp cath as expected critical 3v CAD Objective vital signs Vital Sign Date Time Temp Pulse Resp B/P (MAP) Pulse Ox O2 Delivery O2 Flow Rate FiO2 07/23/24 08:30 97.7 95 17 100/52 (68) 98 97.7 07/22/24 20:00 Nasal Cannula* 2 28 Total Intake and Output 07/22/24 07/22/24 07/23/24 15:00 23:00 07:00 Intake Total 288 ml 650 ml 268 ml Output Total 600 ml 850 ml Balance 288 ml 50 ml -582 ml medications Current Medications Medications Dose Ordered Sig/Waldo Route Start Time Stop Time Status Last Admin Dose Admin Acetaminophen/ Hydrocodone Bitart 1 tab Q4HP PRN PO 07/20/24 19:15 Acetaminophen 650 mg Q6HP PRN PO 07/20/24 19:15 Morphine Sulfate 2 mg Q4HPRN PRN IV 07/20/24 19:15 Nitroglycerin 0.4 mg Q5MINP PRN SL 07/20/24 19:15 Morphine Sulfate 2 mg Q30M PRN IV 07/20/24 19:15 Diagnostic Test (Pha) 1 strip ACHS 07/20/24 22:00 07/23/24 06:06 1 STRIP Insulin Human Regular ACHS SC 07/20/24 22:00 07/22/24 21:38 4 UNITS Dextrose 50 ml UD PRN IV 07/20/24 19:30 Hydralazine HCl 10 mg Q6HP PRN IV 07/20/24 19:30 Aspirin 81 mg DAILY PO 07/21/24 10:00 07/22/24 09:56 81 MG Furosemide 20 mg BIDD IV 07/21/24 18:00 07/23/24 05:23 20 MG Metoprolol Tartrate 12.5 mg BID PO 07/21/24 10:00 07/22/24 21:35 12.5 MG Lisinopril 5 mg DAILY PO 07/21/24 10:00 07/22/24 09:55 5 MG Atorvastatin Calcium 40 mg HS PO 07/21/24 22:00 07/22/24 21:35 40 MG Levofloxacin/ Dextrose 100 ml @ 100 mls/hr DAILY IV 07/22/24 10:00 07/22/24 09:55 100 MLS/HR Examination: GENERAL:Abnormal, HEENT:Abnormal, LUNGS:Abnormal, CVS:Abnormal, ABDOMEN:Abnormal laboratory and microbiology Laboratory Tests 07/23/24 05:19 Test 07/23/24 05:19 Range/Units Serum Glucose 158 H 74-106 mg/dL Problem List/Assessment/Plan Problem List/Assessment/Plan nstemi severe chf new onset htn hl DM obesity [facility] tomorrow AM, pt agrees to plan after informed consent high risk for multivessel cad cnt asa dc heparin at 2359 npo after 2400 cxr today lovenox asa recommend tx to higher level center for cabg vs pci consult d/w James Plan discussed with: Patient My Orders My Orders Orders - ELISHA HARKINS MD Procedure Category Date Status Time Cl Left Heart Cath CL 07/23/24 Taken 12:06 Date of Service: Jul 23, 2024 Billing Provider: ELISHA HARKINS MD Common Visit Codes: NOT BILLABLE ELISHA HARKINS MD Jul 23, 2024 12:56
--- NOTE | 2024-07-23 13:00 | DVHOP2 ---
Operative Report Operative Report CARDIAC HOME CARE MANAGER PROCEDURE REPORT [place], [place] Date of Service: 07/23/24 Dairy Equipment Mechanic: Elisha Harkins MD PROCEDURES PERFORMED: Coronary angiogram, left heart catheterization, conscious sedation administration and supervision, less than 15 minutes; fluoroscopy use and interpretation. IF angiogram, hemostasis closure device PREOPERATIVE DIAGNOSES: nstemi, suspected 3v cad POSTOP DIAGNOSIS: severe 3v cad DESCRIPTION OF PROCEDURE: The patient or appropriate family signed informed consent understanding the risks, benefits and alternatives of the procedure, they wished to proceed. The patient was brought to the cardiac labor supervisor in n.p.o. state. The patient was prepped in a sterile fashion. Sedation was used per cardiac cath protocol. I administered 2 mL of 2% lidocaine to the right wrist. I could barely feel a pulse but With an antegrade front wall puncture. I cannulated the right radial artery and placed a 6-[place] slender with 1 stick and the artery was extremely crunchy and calcified. . Next, an intra-arterial spasmolytic was administered. Next, a - 6 [place] catheter and 4F JR 4 catheter used to attempt angio but there was too much spas m. i gave more nitro but still unable to tourque my catheter. therefore, i abandaned RRA approach. I gave 8 cc 2% lidcoaine to R groin and with cook needle I got 6F R WOOD INSPECTOR access . THen i used 6F JR4 and JL 4 were used for coronary angiogram and LVEDP measurement and pressure pullback. At the completion of procedure, all guides and wires were removed, and there were no immediate complications. 6F angioseal used for closure slightly high bifurcation FINDINGS: RCA: Moderate vessel off the right sinus of Valsalva, there is a prox to mid vessel CERTIFIED HEALTH EDUCATION SPECIALIST with antegrade and L to R collaterals . this is a large 5 mm vessel. LEFT MAIN: Moderate size left main, it bifurcates into LAD and circumflex. there is a 90% distal LM stenosis with heavy calcium , CIRCUMFLEX: Moderate caliber vessel coming off the left main with no flow limiting stenosis. OM1 has superior branch high grade stenosis > 80% s LAD: LAD is a moderate caliber vessel coming of the left main. ostial LAD has 90% stenosis, mid LAD is small and has a 80% stenosis. septals came off it distally as it was difficult to assess if it was a bigger diagonal artery as well. CONCLUSIONS: 1. critical LM and 3v cad PLAN: Aggressive risk factor modification and medical management for the patient. cabg vs high risk pci consult heparin gtt ELISHA HARKINS MD Jul 23, 2024 13:00
[2024-07-23 14:37] LABS: Basophils # (auto) 0 10 ^3/uL (0-0.2); Basophils % (auto) 0.5 % (0.0-2.0); Eosinophils # (auto) 0.1 10 ^3/uL (0-0.8); Eosinophils % (auto) 1.6 % (0.0-7.0); Hematocrit 41.5 % (41.0-53.0); Hemoglobin 13.9 g/dL (13.5-17.5); Lymphocytes # (auto) 1.6 10 ^3/uL (0.4-5.4); Lymphocytes % (auto) 23.5 % (10.0-50.0); Mean Corpuscular Hemoglobin 32.6 pg (28.0-32.0); Mean Corpuscular Hgb Conc. 33.5 g/dL (32.0-36.0); Mean Corpuscular Volume 97.5 fL (80.0-100.0); Monocytes # (auto) 0.5 10 ^3/uL (0-1.3); Monocytes % (auto) 6.9 % (0.0-12.0); Neutrophils # (auto) 4.6 10 ^3/uL (1.6-8.6); Neutrophils % (auto) 67.5 % (37.0-80.0); Nucleated Red Blood Cells % 0.1 %; Platelet Count (auto) 192 10^3/uL (140-450); Red Blood Cells 4.26 10^6/uL (4.5-5.90); Red Cell Distribution Width 14.5 % (11.8-14.3); White Blood Cell 6.9 10^3/uL (4.4-10.8)
[2024-07-23 14:51] LABS: INR 1.21 (0.9-1.15); Partial Thromboplastin Time 26.6 SEC (24.5-34.5); Prothrombin Time 12.6 sec (9.3-11.8)
[2024-07-23] MEDS ORDERED: EMPA1TAB3 PO (15:26)
[2024-07-23] MEDS: HEPARIN DRIP/D5W 100UNITS/ML 250 ML IV SCH (16:45)
[2024-07-23] MEDS: HEPARIN SODIUM (PORCINE) 5000 UNITS/ML 1ML VIAL IV ONE (16:47)
[2024-07-23 22:38] LABS: INR 1.26 (0.9-1.15); Partial Thromboplastin Time 42.7 SEC (24.5-34.5); Prothrombin Time 13.1 sec (9.3-11.8)
[2024-07-24] VITALS (8 sets, daily range): BP systolic 92–120; BP diastolic 49–72; PULSE 82–104; RESP 16–18; TEMP 97.6–98.4; O2SAT 93–97
[2024-07-24 07:08] LABS: Basophils # (auto) 0 10 ^3/uL (0-0.2); Basophils % (auto) 0.5 % (0.0-2.0); Eosinophils # (auto) 0.2 10 ^3/uL (0-0.8); Eosinophils % (auto) 2.3 % (0.0-7.0); Hematocrit 40.2 % (41.0-53.0); Lymphocytes % (auto) 29.8 % (10.0-50.0); Mean Corpuscular Hemoglobin 33.3 pg (28.0-32.0); Mean Corpuscular Hgb Conc. 34.9 g/dL (32.0-36.0); Mean Corpuscular Volume 95.5 fL (80.0-100.0); Monocytes # (auto) 0.5 10 ^3/uL (0-1.3); Monocytes % (auto) 7.9 % (0.0-12.0); Neutrophils % (auto) 59.5 % (37.0-80.0); Platelet Count (auto) 202 10^3/uL (140-450); Red Blood Cells 4.21 10^6/uL (4.5-5.90); Red Cell Distribution Width 14.2 % (11.8-14.3); White Blood Cell 6.7 10^3/uL (4.4-10.8)
[2024-07-24 07:21] LABS: INR 1.25 (0.9-1.15); Partial Thromboplastin Time 46.9 SEC (24.5-34.5)
[2024-07-24 09:05] LABS: Alanine Aminotransferase 19 U/L (7-40); Albumin 3.7 g/dL (3.2-4.8); Alkaline Phosphatase 74 U/L (46-116); Anion Gap 9 (5-15); Aspartate Aminotransferase 34 U/L (13-40); BUN/Creatinine Ratio 24.7 (10.0-20.0); Blood Urea Nitrogen 21 mg/dL (9-23); Calcium 9.5 mg/dL (8.7-10.4); Carbon Dioxide 27 mmol/L (20-31); Chloride 104 mmol/L (98-107); Glucose 152 mg/dL (74-106); Potassium 3.6 mmol/L (3.5-5.1); Sodium 140 mmol/L (136-145)
[2024-07-24 09:06] LABS: Bilirubin, Total 1.2 mg/dL (0.2-1.0); Total Protein 6.4 g/dL (5.7-8.2)
[2024-07-24] MEDS: HEPARIN DRIP/D5W 100UNITS/ML 250 ML IV SCH ×2 (09:53→23:11)
--- NOTE | 2024-07-24 11:34 | DVHDS2 ---
Discharge Summary Date of Admission Jul 20, 2024 at 19:03 Date of Discharge: Jul 24, 2024 Labs/Diagnostic Data: Laboratory Results Test 07/24/24 05:49 07/24/24 05:21 07/23/24 04:35 07/22/24 05:03 POC Glucose 180 mg/dl (70-106) White Blood Count 6.7 10^3/uL (4.4-10.8) Red Blood Count 4.21 10^6/uL (4.5-5.90) Hemoglobin 14.0 g/dL (13.5-17.5) Hematocrit 40.2 % (41.0-53.0) Mean Corpuscular Volume 95.5 fL (80.0-100.0) Mean Corpuscular Hemoglobin 33.3 pg (28.0-32.0) Mean Corpuscular Hemoglobin Concent 34.9 g/dL (32.0-36.0) Red Cell Distribution Width 14.2 % (11.8-14.3) Platelet Count 202 10^3/uL (140-450) Mean Platelet Volume 8.5 fL (6.9-10.8) Neutrophils (%) (Auto) 59.5 % (37.0-80.0) Lymphocytes (%) (Auto) 29.8 % (10.0-50.0) Monocytes (%) (Auto) 7.9 % (0.0-12.0) Eosinophils (%) (Auto) 2.3 % (0.0-7.0) Basophils (%) (Auto) 0.5 % (0.0-2.0) Neutrophils # (Auto) 4.0 10 ^3/uL (1.6-8.6) Lymphocytes # (Auto) 2.0 10 ^3/uL (0.4-5.4) Monocytes # (Auto) 0.5 10 ^3/uL (0-1.3) Eosinophils # (Auto) 0.2 10 ^3/uL (0-0.8) Basophils # (Auto) 0 10 ^3/uL (0-0.2) Nucleated Red Blood Cells 0.0 % Prothrombin Time 13.0 sec (9.3-11.8) Prothrombin Time INR 1.25 (0.9-1.15) Activated Partial Thromboplast Time 46.9 SEC (24.5-34.5) Sodium Level 140 mmol/L (136-145) Potassium Level 3.6 mmol/L (3.5-5.1) Chloride Level 104 mmol/L (98-107) Carbon Dioxide Level 27 mmol/L (20-31) Anion Gap 9 (5-15) Blood Urea Nitrogen 21 mg/dL (9-23) Creatinine 0.85 mg/dL (0.700-1.30) Glomerular Filtration Rate Calc 99 mL/min (>90) BUN/Creatinine Ratio 24.7 (10.0-20.0) Serum Glucose 152 mg/dL (74-106) Calcium Level 9.5 mg/dL (8.7-10.4) Total Bilirubin 1.2 mg/dL (0.2-1.0) Aspartate Amino Transferase (AST) 34 U/L (13-40) Alanine Aminotransferase (ALT) 19 U/L (7-40) Alkaline Phosphatase 74 U/L (46-116) Total Protein 6.4 g/dL (5.7-8.2) Albumin 3.7 g/dL (3.2-4.8) Urine Color Yellow (Yellow) Urine Clarity Clear (Clear) Urine pH 5.0 (5.0-9.0) Urine Specific [place] 1.025 (1.001-1.035) Urine Protein Trace (Negative) Urine Ketones Trace (Negative) Urine Blood Negative /uL (Negative) Urine Nitrite Negative (Negative) Urine Bilirubin Negative (Negative) Urine Urobilinogen 2 mg/dL (Negative) Urine Leukocyte Esterase Negative /uL (Negative) Urine RBC 1 /hpf (0 - 3) Urine WBC 5 /hpf (0 - 3) Urine Squamous Epithelial Cells None seen /hpf (<5) Urine Bacteria None seen /hpf (None Seen) Urine Mucus Few (None Seen) Urine Glucose 3+ mg/dL (Normal) Troponin I High Sensitivity 4123 ng/L (</=54) Test 07/21/24 06:32 07/20/24 19:23 07/20/24 15:18 Hemoglobin A1c 6.9 % A1C (<5.7) Magnesium Level 1.7 mg/dL (1.6-2.6) Triglycerides Level 95 mg/dL (< 150) Cholesterol Level 132 mg/dL (< 200) LDL Cholesterol 76 mg/dL (< 100) HDL Cholesterol 35 mg/dL (40-59) Thyroid Stimulating Hormone (TSH) 1.64 uIU/mL (0.55-4.78) Influenza Type A Antigen Negative (Negative) Influenza Type B Antigen Negative (Negative) SARS-CoV-2 Antigen (Rapid) Negative (NEGATIVE) B-Type Natriuretic Peptide 502.78 pg/mL (0-100) Other Laboratory Tests 07/24/24 05:21 Brief Hx & Hospital Course: Patient is a 59-year-old male with past medical history of type 2 diabetes who presents with complaints of chest pain. Patient was admitted for NSTEMI. Patient was evaluated by cardiology and underwent left heart cath. Findings are noted below. Overall, patient was noted to have a critical left main stenosis with heavy calcification. He also was noted to have 90% stenosis of the ostial LAD and 80% stenosis of the mid LAD. No stent was placed as it was noted to be a high risk PCI. TTE was done which showed 25% LVEF, WMA with apex is hypokinetic. Aortic sclerosis was noted as well. Higher level of care was recommended for high risk PCI versus CABG given three-vessel CAD. Patient was continued on heparin drip throughout his hospitalization. Patient's A1c was noted to be 6.9. His lipid panel was notable for HDL of 35. Patient was diuresed with Lasix 20 mg twice daily, and started on lisinopril, metoprolol, aspirin. Patient's chest pain resolved during his hospitalization. Overall plan to transfer patient to higher level of care for high risk PCI. LEFT HEART CATH: RCA: Moderate vessel off the right sinus of Valsalva, there is a prox to mid vessel PROSTHETIC DENTIST with antegrade and L to R collaterals . this is a large 5 mm vessel. LEFT MAIN: Moderate size left main, it bifurcates into LAD and circumflex. there is a 90% distal LM stenosis with heavy calcium , CIRCUMFLEX: Moderate caliber vessel coming off the left main with no flow limiting stenosis. OM1 has superior branch high grade stenosis > 80% s LAD: LAD is a moderate caliber vessel coming of the left main. ostial LAD has 90% stenosis, mid LAD is small and has a 80% stenosis. septals came off it distally as it was difficult to assess if it was a bigger diagonal artery as well. Condition at Discharge: Critical Final Diagnosis/Problems List NSTEMI Secondary Diagnosis: 3 Vessel CAD Acute Respiratory Failure Type 2 Diabetes CHF, Reduced Systolic EF 25%, End Stage CHF (I50.84) Atherosclerosis Morbid Obesity Discharge Disposition: Still a Patient Discharge Statement: "Patient was advised to return to the ER or call 911 if any headaches, dizziness, shortness of breath, chest pain, abdominal pain, bleeding, fevers, or worsening of medical condition. Patient was counseled about treatment plan, medications, possible side effects, patientverbalized understanding. All questions were answered to the best of my ability. This discharge took greater then 30 minutes in planning, reviewing documentation, counseling the patient, and discussing with other team members." ASSESSMENT ASSESSMENT Assessment KEAGAN OCAMPO DO Jul 24, 2024 11:34
[2024-07-24] MEDS: POLYETHYLENE GLYCOL 17 GM PWDR PO SCH (12:02)
[2024-07-24 12:30] LABS: INR 1.29 (0.9-1.15); Prothrombin Time 13.4 sec (9.3-11.8)
--- NOTE | 2024-07-24 16:32 | DVHPN2 ---
Progress Note Date Seen: Jul 24, 2024 Medical Necessity Reason Pt with a Central, PICC or Fol: No Subjective Other Systems: turned down at [facility] [place] [facility] [place] [facility] care center yesterday very high risk pt Objective vital signs Vital Sign Date Time Temp Pulse Resp B/P (MAP) Pulse Ox O2 Delivery O2 Flow Rate FiO2 07/24/24 13:00 97.6 89 16 120/67 (84) 94 97.6 07/23/24 20:00 Nasal Cannula* 2 28 Total Intake and Output 07/23/24 07/23/24 07/24/24 15:00 23:00 07:00 Intake Total 1242 ml 592 ml Output Total 450 ml Balance 1242 ml 142 ml medications Current Medications Medications Dose Ordered Sig/Waldo Route Start Time Stop Time Status Last Admin Dose Admin Acetaminophen/ Hydrocodone Bitart 1 tab Q4HP PRN PO 07/20/24 19:15 Acetaminophen 650 mg Q6HP PRN PO 07/20/24 19:15 Morphine Sulfate 2 mg Q4HPRN PRN IV 07/20/24 19:15 Nitroglycerin 0.4 mg Q5MINP PRN SL 07/20/24 19:15 Morphine Sulfate 2 mg Q30M PRN IV 07/20/24 19:15 Diagnostic Test (Pha) 1 strip ACHS 07/20/24 22:00 07/24/24 11:46 1 STRIP Insulin Human Regular ACHS SC 07/20/24 22:00 07/24/24 12:00 3 UNITS Dextrose 50 ml UD PRN IV 07/20/24 19:30 Hydralazine HCl 10 mg Q6HP PRN IV 07/20/24 19:30 Aspirin 81 mg DAILY PO 07/21/24 10:00 07/24/24 10:12 81 MG Furosemide 20 mg BIDD IV 07/21/24 18:00 07/24/24 05:40 20 MG Metoprolol Tartrate 12.5 mg BID PO 07/21/24 10:00 07/23/24 21:41 12.5 MG Lisinopril 5 mg DAILY PO 07/21/24 10:00 07/22/24 09:55 5 MG Atorvastatin Calcium 40 mg HS PO 07/21/24 22:00 07/23/24 21:41 40 MG Levofloxacin/ Dextrose 100 ml @ 100 mls/hr DAILY IV 07/22/24 10:00 07/22/24 09:55 100 MLS/HR Heparin Sodium/ Dextrose 250 ml @ 16 mls/hr [id number] IV 07/24/24 09:00 07/24/24 09:53 16 MLS/HR Polyethylene Glycol 17 gm DAILY PO 07/24/24 11:30 07/24/24 12:02 17 GM Examination: GENERAL:Abnormal, HEENT:Abnormal, LUNGS:Abnormal, CVS:Abnormal, ABDOMEN:Abnormal laboratory and microbiology Laboratory Tests 07/24/24 05:21 Test 07/24/24 05:21 Range/Units Serum Glucose 152 H 74-106 mg/dL Problem List/Assessment/Plan Problem List/Assessment/Plan nstemi severe chf new onset htn hl DM obesity [facility] tomorrow AM, pt agrees to plan after informed consent high risk for multivessel cad cnt asa dc heparin at 2359 npo after 2400 cxr today lovenox asa recommend tx to higher level center for cabg vs pci consult d/w James Plan discussed with: Patient My Orders My Orders Orders - ELISHA HARKINS MD Procedure Category Date Status Time Heparin Drip/D5w PHA 07/24/24 In Process 100units/Ml 09:00 PTPTT LAB 07/24/24 Logged 18:00 Date of Service: Jul 24, 2024 Billing Provider: ELISHA HARKINS MD Common Visit Codes: NOT BILLABLE ELISHA HAKRINS MD Jul 24, 2024 16:32
[2024-07-24 18:48] LABS: INR 1.25 (0.9-1.15); Partial Thromboplastin Time 49.3 SEC (24.5-34.5)
== END 2024-07-24 23:40 | disposition short-term general hospital (02) | DRG 280 ==
LOC: ER 14:31 → TELE 19:03 → TELE-CENTR 07-21 01:35
PROVIDERS: ADMIT Student in an Organized Health Care Education/Training Program; ATTEND Student in an Organized Health Care Education/Training Program
PROC: 4A023N7 Measurement of Cardiac Sampling and Pressure, Left Heart, Percutaneous Approach (ICD-10-PCS; principal; 2024-07-23)
PROC: B211YZZ Fluoroscopy of Multiple Coronary Arteries using Other Contrast (ICD-10-PCS; 2024-07-23)
DX: I21.4 Non-ST elevation (NSTEMI) myocardial infarction (principal); J18.9 Pneumonia, unspecified organism; J96.00 Acute respiratory failure, unspecified whether with hypoxia or hypercapnia; Z68.41 Body mass index [BMI] 40.0-44.9, adult; I50.20 Unspecified systolic (congestive) heart failure; E11.9 Type 2 diabetes mellitus without complications; E66.01 Morbid (severe) obesity due to excess calories; I11.0 Hypertensive heart disease with heart failure; I44.7 Left bundle-branch block, unspecified; I50.84 End stage heart failure; E78.5 Hyperlipidemia, unspecified; K21.9 Gastro-esophageal reflux disease without esophagitis; Z20.822 Contact with and (suspected) exposure to COVID-19; I25.10 Atherosclerotic heart disease of native coronary artery without angina pectoris; I70.0 Atherosclerosis of aorta; Z79.84 Long term (current) use of oral hypoglycemic drugs; Z79.899 Other long term (current) drug therapy
CPT/HCPCS: 36415; 71046; 80053; 80061; 81001; 82962; 83036; 83735; 84443; 84484; 85025; 85610; 85730; 86850; 86900; 86901; 93306; 96365; 99152; 99291; G0378; J1815; J1956; J2250; Q9967